=== PATIENT | male | born 1955 | race Caucasian/White ===

== ENCOUNTER → 2023-04-10 14:39 | Outpatient (REF) | payer MEDICARE, OTHER, SELFPAY | LOC: HWRAD 14:39 | PROVIDERS: ATTENDING PHYSICIAN Internal Medicine Rheumatology; FAMILY PHYSICIAN Physician Assistant Medical | DX: R53.82 Chronic fatigue, unspecified (principal); R76.8 Other specified abnormal immunological findings in serum | CPT/HCPCS: 71046 ==

== ENCOUNTER → 2024-08-15 09:11 | Outpatient (REF) | payer MEDICARE, OTHER, SELFPAY | LOC: RCS 09:11 | PROVIDERS: ATTENDING PHYSICIAN Internal Medicine Cardiovascular Disease; FAMILY PHYSICIAN Physician Assistant Medical | DX: I10 Essential (primary) hypertension (principal); R53.83 Other fatigue; R06.02 Shortness of breath; E11.9 Type 2 diabetes mellitus without complications; Z82.41 Family history of sudden cardiac death | CPT/HCPCS: 93306; 93356 ==

== ENCOUNTER → 2024-08-27 08:11 | Outpatient (REF) | payer MEDICARE, OTHER, SELFPAY | LOC: RCS 08:11 | PROVIDERS: ATTENDING PHYSICIAN Internal Medicine Cardiovascular Disease; FAMILY PHYSICIAN Physician Assistant Medical | DX: I10 Essential (primary) hypertension (principal); R53.83 Other fatigue; R06.02 Shortness of breath; R07.9 Chest pain, unspecified | CPT/HCPCS: 78452; 93017; A9500 ==

== ENCOUNTER 2024-09-12 06:19 | Day surgery (SDC) | payer MEDICARE, OTHER, SELFPAY ==
[2024-09-12 10:18] LABS: Glucose - Point of Care 151 mg/dl (70-99)
== END 2024-09-12 13:16 | disposition home or self-care (01) ==
LOC: GI 06:19
PROVIDERS: ATTENDING PHYSICIAN Internal Medicine Gastroenterology
DX: Z12.11 Encounter for screening for malignant neoplasm of colon (principal); K57.30 Diverticulosis of large intestine without perforation or abscess without bleeding; Q39.9 Congenital malformation of esophagus, unspecified; R13.10 Dysphagia, unspecified; K44.9 Diaphragmatic hernia without obstruction or gangrene; K31.7 Polyp of stomach and duodenum; R12 Heartburn; Z86.0100 Personal history of colon polyps, unspecified
CPT/HCPCS: 43251; G0105; 82962; 88305; 88342

== ENCOUNTER → 2024-11-29 13:20 | Outpatient (REF) | payer MEDICARE, OTHER, SELFPAY | LOC: RAD 13:20 | PROVIDERS: ATTENDING PHYSICIAN Otolaryngology; FAMILY PHYSICIAN Physician Assistant Medical | DX: K11.20 Sialoadenitis, unspecified (principal) | CPT/HCPCS: 70492; Q9967 ==

== ENCOUNTER → 2025-01-28 09:19 | Outpatient (REF) | payer MEDICARE, OTHER, SELFPAY | LOC: RAD 09:19 | PROVIDERS: ATTENDING PHYSICIAN Internal Medicine Gastroenterology; FAMILY PHYSICIAN Physician Assistant Medical | DX: R13.10 Dysphagia, unspecified (principal) | CPT/HCPCS: 74221 ==